=== PATIENT | female | born 1985 | race Two or more races ===

== ENCOUNTER 2019-04-26 15:51 | Inpatient (IN) ==
[2019-04-26] MEDS ORDERED: PITOCIN IVP ONE (16:00)
[2019-04-26] MEDS ORDERED: PHENERGAN INJ 25 MG IM PRN (16:00)
[2019-04-26] MEDS ORDERED: D5LR 1L W PITOCIN 10 UNITS/L 10 UNITS/1,000 ML BAG IV PRN (16:00)
[2019-04-26] MEDS ORDERED: NUBAIN INJ 200 MG VIAL MULTIDOSE IVP PRN (16:00)
[2019-04-26] MEDS ORDERED: REGLAN INJ 10 MG VIAL IVP PRN (16:00)
[2019-04-26] MEDS: D5 1/2 NS 1000 ML 1,000 ML IV SCH (16:40)
[2019-04-26 16:53] LABS: BASOPHILS # (AUTO) 0.1 X10^3/uL (0.0-0.1); BASOPHILS % (AUTO) 0.8 % (0.2-1.0); EOSINOPHILS % (AUTO) 0.1 % (0.9-2.9); HEMATOCRIT 38.1 % (36.0-47.0); HEMOGLOBIN 12.7 g/dL (12.0-16.0); LYMPHOCYTES # (AUTO) 1.9 X10^3/uL (1.3-2.9); LYMPHOCYTES % (AUTO) 14.5 % (21.0-51.0); MEAN CORPUSCULAR HEMOGLOBIN 27.7 pg (27.0-34.0); MEAN CORPUSCULAR HGB CONC 33.2 g/dL (33.0-35.0); MEAN CORPUSCULAR VOLUME 83.3 fL (80.0-100.0); MEAN PLATELET VOLUME 7.5 fL (7.4-11.0); MONOCYTES # (AUTO) 0.7 x10^3/uL (0.3-0.8); MONOCYTES % (AUTO) 5.6 % (0.0-13.0); NEUTROPHILS # (AUTO) 10.2 x10^3/uL (2.2-4.8); PLATELET COUNT 239 X10^3/uL (150.0-450.0); RED BLOOD COUNT 4.57 X10^6/uL (3.5-5.4); RED CELL DISTRIBUTION WIDTH 14.8 % (11.6-16.5); WHITE BLOOD COUNT 12.9 X10^3/uL (3.6-10.0)
[2019-04-26 17:06] LABS: BILIRUBIN,URINE NEGATIVE (NEGATIVE); BLOOD/HEMOGLOBIN,URINE 5+ (NEGATIVE); GLUCOSE, URINE NEGATIVE (NEGATIVE); KETONES,URINE 1+ (NEGATIVE); LEUKOCYTE ESTERASE ,URINE 3+ (NEGATIVE); NITRITES,URINE NEGATIVE (NEGATIVE); PROTEIN,URINE 2+ (NEGATIVE); UROBILINOGEN,URINE 1+ (NORMAL)
[2019-04-26 17:07] LABS: APPEARANCE,URINE HAZY (CLEAR); COLOR,URINE DARK YELLOW (YELLOW)
[2019-04-26 17:13] LABS: BACTERIA,URINE 1+ /HPF (NEGATIVE); RBC,URINE 30-50 /HPF (0-3); SQUAMOUS EPITHELIAL CELL,UR FEW /HPF (NEGATIVE)
[2019-04-26 17:19] LABS: BLOOD UREA NITROGEN 10 mg/dL (7-18); CALCIUM 8.6 mg/dL (8.5-10.1); CARBON DIOXIDE 23.8 mmol/L (21-32); CHLORIDE 100 mmol/L (98-107); CREATININE 0.66 mg/dL (0.55-1.02); SODIUM 133 mmol/L (136-145); eGFR NON BLACK RACES > 60 (>60)
[2019-04-26] MEDS ORDERED: PITOCIN ONE (17:35)
[2019-04-26] MEDS ORDERED: D5LR 1L W PITOCIN 10 UNITS/L 10 UNITS/1,000 ML BAG IV ONE (17:35)
[2019-04-26] MEDS ORDERED: REGLAN INJ 10 MG VIAL ONE (19:38)
[2019-04-26] MEDS ORDERED: D5 1/2 NS 1L W PITOCIN 20 UNITS/L 20 UNITS/1,000 ML BAG IV ONE (19:38)
[2019-04-27] MEDS ORDERED: D5 1/2 NS 1000 ML 1,000 ML IV ONE (00:20)
[2019-04-27] MEDS ORDERED: XYLOCAINE 1 % (PLAIN) ONE (02:08)
[2019-04-27] MEDS ORDERED: DERMOPLAST SPRAY ONE (03:48)
[2019-04-27] MEDS ORDERED: DERMOPLAST SPRAY TOP PRN (04:07)
[2019-04-27] MEDS ORDERED: MOTRIN TAB 800 MG PO PRN ×2 (04:07)
[2019-04-27] MEDS ORDERED: MILK OF MAGNESIA PO PRN (04:07)
[2019-04-27] MEDS ORDERED: PHENERGAN INJ 25 MG IM PRN (04:07)
[2019-04-27] MEDS: D5 1/2 NS 1000 ML 1,000 ML IV SCH (04:48)
[2019-04-27 06:05] LABS: HEMATOCRIT 36.1 % (36.0-47.0); HEMOGLOBIN 12.1 g/dL (12.0-16.0)
[2019-04-27] MEDS: D5 1/2 NS 1000 ML 1,000 ML with PITOCIN 20 UNITS IV SCH ×2 (06:24)
[2019-04-27] MEDS: PRENATAL PLUS PO SCH (10:05)
[2019-04-28] MEDS: D5 1/2 NS 1000 ML 1,000 ML IV SCH ×2 (00:21→08:06)
[2019-04-28] MEDS: D5 1/2 NS 1000 ML 1,000 ML with PITOCIN 20 UNITS IV SCH ×2 (05:45)
[2019-04-28 08:03] VITALS: BP 80/44
[2019-04-28] MEDS: PRENATAL PLUS PO SCH (08:06)
[2019-04-28] MEDS ORDERED: ADACEL or BOOSTRIX TDaP VACCINE IM ONE (10:44)
== END 2019-04-28 13:15 | disposition home or self-care (01) | DRG 807 ==
LOC: EDBD → LD 15:51 → MED/SURG 04-27 03:45
PROVIDERS: ADMIT Obstetrics & Gynecology Obstetrics; ATTEND Obstetrics & Gynecology Obstetrics
DX: Z3A.39 39 weeks gestation of pregnancy; Z37.0 Single live birth; O70.1 Second degree perineal laceration during delivery; O46.8X3 Other antepartum hemorrhage, third trimester; Z23 Encounter for immunization
CPT/HCPCS: 36415; 59409; 80048; 81001; 84443; 85014; 85018; 85025; 86592; 86850; 86900; 86901; 87086; 90715; A4216; A4222; J2765; S0197; S5010

== ENCOUNTER 2021-05-11 11:07 | Inpatient (IN) ==
[2021-05-11 11:17] VITALS: BMI 25.4
[2021-05-11] MEDS ORDERED: PITOCIN ONE (11:30)
[2021-05-11] MEDS: D5 1/2 NS 1,000 ML 1,000 ML with PITOCIN 20 UNITS IV SCH ×4 (11:30→13:45)
[2021-05-11] MEDS ORDERED: D5 1/2 NS 1,000 ML 1,000 ML IV ONE (11:30)
[2021-05-11 11:31] LABS: BASOPHILS # (AUTO) 0.1 X10^3/uL (0.0-0.1); BASOPHILS % (AUTO) 0.9 % (0.2-1.0); HEMATOCRIT 33.8 % (36.0-47.0); HEMOGLOBIN 10.9 g/dL (12.0-16.0); LYMPHOCYTES # (AUTO) 1.4 X10^3/uL (1.3-2.9); MEAN CORPUSCULAR HEMOGLOBIN 24.3 pg (27.0-34.0); MEAN CORPUSCULAR HGB CONC 32.2 g/dL (33.0-35.0); MEAN CORPUSCULAR VOLUME 75.4 fL (80.0-100.0); MEAN PLATELET VOLUME 7.8 fL (7.4-11.0); MONOCYTES # (AUTO) 0.6 x10^3/uL (0.3-0.8); MONOCYTES % (AUTO) 4.4 % (0.0-13.0); NEUTROPHILS # (AUTO) 11.8 x10^3/uL (2.2-4.8); NEUTROPHILS % (AUTO) 84.7 % (42.0-75.0); RED BLOOD COUNT 4.48 X10^6/uL (3.5-5.4); WHITE BLOOD COUNT 13.9 X10^3/uL (3.6-10.0)
[2021-05-11] MEDS ORDERED: D5 1/2 NS 1,000 mL + PITOCIN 20 UNITS/L IV 20 UNITS/1,000 ML BAG IV ONE (11:31)
[2021-05-11] MEDS ORDERED: D5 LR + PITOCIN 10 UNITS/L 10 UNITS/1,000 ML BAG IV ONE (11:31)
[2021-05-11 11:36] LABS: AMNISURE ROM TEST NO MEMBRANES RUPTURE (NO RUPTURE)
[2021-05-11 11:43] LABS: ALANINE AMINOTRANSFERASE 19 Units/L (12-78); ALBUMIN 2.8 g/dL (3.4-5.0); ALKALINE PHOSPHATASE 184 Units/L (46-116); ASPARTATE AMINO TRANSFERASE 16 Units/L (15-37); BLOOD UREA NITROGEN 9 mg/dL (7-18); CALCIUM 7.8 mg/dL (8.5-10.1); CARBON DIOXIDE 21.5 mmol/L (21-32); CHLORIDE 103 mmol/L (98-107); COR CA(FOR HYPOALB) 8.8 mg/dL (8.5-10.1); CREATININE 0.64 mg/dL (0.55-1.02); SODIUM 136 mmol/L (136-145); TOTAL PROTEIN 6.9 g/dL (6.4-8.2); eGFR NON BLACK RACES > 60 (>60)
[2021-05-11] MEDS ORDERED: AMPICILLIN VIAL 2 GRAM ONE (11:51)
[2021-05-11] MEDS ORDERED: NS 500 ML IV 500 ML IV ONE (11:51)
[2021-05-11] MEDS ORDERED: PITOCIN IVP ONE (12:08)
[2021-05-11] MEDS ORDERED: D5 LR + PITOCIN 10 UNITS/L 10 UNITS/1,000 ML BAG IV PRN (12:08)
[2021-05-11] MEDS ORDERED: STADOL INJ IVP PRN (12:09)
[2021-05-11] MEDS ORDERED: XYLOCAINE 1 % (PLAIN) ONE (12:27)
[2021-05-11] MEDS ORDERED: STADOL INJ ONE (12:27)
[2021-05-11] MEDS ORDERED: PHENERGAN INJ 25 MG IM PRN (12:38)
[2021-05-11] MEDS ORDERED: MOTRIN TAB 800 MG PO PRN ×2 (12:38→13:47)
[2021-05-11] MEDS ORDERED: AMPICILLIN VIAL 2 GRAM 2 G in NS 100 ML IV + SPIKE MINIBAG* 100 ML IV SCH (13:00)
[2021-05-11] MEDS ORDERED: D5 1/2 NS 1,000 ML 1,000 ML IV SCH (13:00)
[2021-05-11] MEDS ORDERED: AMBIEN PO PRN (13:47)
[2021-05-11] MEDS ORDERED: DERMOPLAST PAIN RELIEF SPRAY TOP PRN (13:47)
[2021-05-11] MEDS ORDERED: MILK OF MAGNESIA PO PRN (13:47)
[2021-05-11 22:27] LABS: BILIRUBIN,URINE NEGATIVE (NEGATIVE); BLOOD/HEMOGLOBIN,URINE 5+ (NEGATIVE); GLUCOSE, URINE 3+ (NEGATIVE); KETONES,URINE NEGATIVE (NEGATIVE); LEUKOCYTE ESTERASE ,URINE 1+ (NEGATIVE); NITRITES,URINE NEGATIVE (NEGATIVE); PH,URINE 6.5 (5.0 - 8.0); PROTEIN,URINE 2+ (NEGATIVE); UROBILINOGEN,URINE NORMAL (NORMAL)
[2021-05-11 22:43] LABS: APPEARANCE,URINE CLOUDY (CLEAR); BACTERIA,URINE TRACE /HPF (NEGATIVE); COLOR,URINE AMBER (YELLOW); RBC,URINE TNTC /HPF (0-3); SQUAMOUS EPITHELIAL CELL,UR RARE /HPF (NEGATIVE)
[2021-05-12] MEDS: D5 1/2 NS 1,000 ML 1,000 ML with PITOCIN 20 UNITS IV SCH ×8 (02:16→21:24)
[2021-05-12 05:37] LABS: HEMATOCRIT 26.5 % (36.0-47.0); HEMOGLOBIN 8.6 g/dL (12.0-16.0)
[2021-05-12] MEDS: PRENATAL PLUS PO SCH (08:27)
[2021-05-12] MEDS ORDERED: NS 100 ML IV 100 ML with VENOFER 400 MG IV NR ×2 (08:41)
[2021-05-13] MEDS: D5 1/2 NS 1,000 ML 1,000 ML with PITOCIN 20 UNITS IV SCH ×2 (04:22)
[2021-05-13 05:32] LABS: BASOPHILS # (AUTO) 0.1 X10^3/uL (0.0-0.1); BASOPHILS % (AUTO) 0.7 % (0.2-1.0); EOSINOPHILS # (AUTO) 0.1 x10^3/uL (0.0-0.2); HEMATOCRIT 28.5 % (36.0-47.0); HEMOGLOBIN 9.4 g/dL (12.0-16.0); LYMPHOCYTES # (AUTO) 2.7 X10^3/uL (1.3-2.9); LYMPHOCYTES % (AUTO) 25.7 % (21.0-51.0); MEAN CORPUSCULAR HEMOGLOBIN 24.9 pg (27.0-34.0); MEAN CORPUSCULAR HGB CONC 33.1 g/dL (33.0-35.0); MEAN CORPUSCULAR VOLUME 75.3 fL (80.0-100.0); MONOCYTES # (AUTO) 0.7 x10^3/uL (0.3-0.8); MONOCYTES % (AUTO) 6.5 % (0.0-13.0); NEUTROPHILS % (AUTO) 66.1 % (42.0-75.0); RED BLOOD COUNT 3.78 X10^6/uL (3.5-5.4); RED CELL DISTRIBUTION WIDTH 15.1 % (11.6-16.5); WHITE BLOOD COUNT 10.6 X10^3/uL (3.6-10.0)
[2021-05-13] MEDS ORDERED: NS 100 ML IV 100 ML with VENOFER 400 MG IV NR ×2 (07:00)
[2021-05-13] MEDS: PRENATAL PLUS PO SCH (08:29)
[2021-05-13 12:32] VITALS: BP 108/54
== END 2021-05-13 13:00 | disposition home or self-care (01) | DRG 807 ==
LOC: ER 11:07 → LD 11:20 → MED/SURG 13:52
PROVIDERS: ADMIT Obstetrics & Gynecology Obstetrics; ATTEND Obstetrics & Gynecology Obstetrics
DX: O70.1 Second degree perineal laceration during delivery; Z37.0 Single live birth; Z20.822 Contact with and (suspected) exposure to COVID-19; O26.893 Other specified pregnancy related conditions, third trimester; Z3A.38 38 weeks gestation of pregnancy